=== PATIENT | male | born 1940 | race Caucasian/White ===

== ENCOUNTER 2017-07-10 16:57 | Inpatient (IN) | payer OTHER ==
[~2017-07-10] VITALS: Ht 172.7 cm; Wt 87.8 kg
[~2017-07-10 16:57] MED LIST: ASPIRIN81 M1 PO; BACTRIM DS 8001 TA1 PO; BP; CHOLESTEROL PILL; CO Q-1010 MG PO; FISH OIL 10001000 MG PO; FLOMAX0.4 MG PO; HYDR25T PO; LISINOPRIL; LISINOPRIL5 MG PO; MULTIPLE VITAMI1 CAP PO; NAPROXEN250 MG PO; PERCOCET 325 MG1 TA5 PO; VITAMIN B COMPL1 TAB PO; VITAMINS
[2017-07-10 17:06] VITALS: BP 127/76
[2017-07-10 17:40] LABS: HEMATOCRIT 39.9 % (42.0-52.0); HEMOGLOBIN 13.6 g/dl (14.0-18.0); MEAN CELL VOLUME 101.3 fl (80.0-94.0); MEAN CORPUSCULAR HGB 34.5 pg (27.0-31.0); MEAN CORPUSCULAR HGB CONC 34.1 g/dl (33.0-37.0); PLATELET COUNT AUTOMATED 220 10*3/uL (130-400); RED BLOOD COUNT 3.94 10*6/uL (4.50-5.90); RED CELL DISTRI WIDTH 12.4 % (0-14.5); WHITE BLOOD COUNT 12.7 10*3/uL (4.8-10.8)
[2017-07-10 17:55] LABS: ALBUMIN 3.4 gm/dl (3.1-4.5); ALKALINE PHOSPHATASE 71 U/L (45-117); BUN 14 mg/dl (7-24); CHLORIDE 99 mmol/L (98-107); CREATININE 1.34 mg/dL (0.70-1.30); POTASSIUM 3.8 mmol/L (3.5-5.1); SGOT/AST 9 IU/L (3-35); SGPT/ALT 13 U/L (12-78); SODIUM 136 mmol/L (136-145)
[2017-07-10 18:11] LABS: BASOPHILS 1 % (0-1); PLATELET SUFFICIENCY NORMAL (NORMAL); TOTAL CELLS COUNTED 100 #CELLS
[2017-07-10 19:08] VITALS: BP 117/65
[2017-07-10 19:32] LABS: BILIRUBIN NEGATIVE (NEGATIVE); BLOOD NEGATIVE (NEGATIVE); CLARITY CLEAR (CLEAR); COLOR YELLOW (YELLOW); GLUCOSE NEGATIVE (NEGATIVE); KETONE 1+ (NEGATIVE); LEUKO ESTERASE NEGATIVE (NEGATIVE); NITRITE NEGATIVE (NEGATIVE); PH 5.5 (5.0-9.0); SPECIFIC GRAVITY 1.025 (1.005-1.030); UROBILINOGEN 0.2 E.U./dl (0.2-1.0)
[2017-07-10 19:39] LABS: BACTERIA TRACE; FINE GRANULAR CAST 0-2; RBC 0-2 rbc/hpf (0-2); WBC 0-2 wbc/hpf (0-5)
[2017-07-10 21:00] VITALS: BP 101/84
--- NOTE | 2017-07-10 21:00 | NUR ---
Time: 2099 A 76 year old MALE admitted to 5E under services of ESPERANZA ORELLANA DO. Pt. arrived via wheel chair from ER. Chief complaint: INTRACTABLE BACK PAIN. SORAYA MAGANA
--- NOTE | 2017-07-10 22:50 | NUR ---
PATIENT REQUESTED AND RECEIVED PO NORCO PER PRN ORDER FOR C/O LOW BACK PAIN 03/14. PATIENT HAS OPEN AREA TO RIGHT LOWER BACK/SIDE. PATIENT SAYS HE HAD PAIN PATCHES AND USED A TENS UNIT TO BACK THAT CAUSED THE OPENING. PHOTOGRAPHS TAKEN AT THIS TIME. WILL MONITOR PATIENT. BLANKETS, TOOTHBRUSH/TOOTHPASTE, AND GOWN PROVIDED FOR COMFORT.
--- NOTE | 2017-07-10 23:57 | NUR ---
EARLIER MEDICATION EFFECTIVE PER PATIENT. WILL CONTINUE TO MONITOR. CALL LIGHT LEFT WITHIN REACH.
[2017-07-11] VITALS: BP 108/45
[2017-07-11] MEDS ORDERED: DONEPEZIL HCL10 MG PO (00:05)
[2017-07-11] MEDS ORDERED: DICLOFENAC SOD100 G1 T (00:07)
[2017-07-11] MEDS ORDERED: THIAMINE HCL100 MG PO (00:08)
[2017-07-11] MEDS ORDERED: CITALOPRAM10 MG PO (00:09)
[2017-07-11] MEDS ORDERED: ASPIRIN81 MG PO (00:10)
[2017-07-11] MEDS ORDERED: TRAZADONE HYDR100 MG PO (00:13)
[2017-07-11] MEDS ORDERED: NATURE'S BLEND F1 MG PO (00:14)
[2017-07-11 03:11] LABS: HEMATOCRIT 38.7 % (42.0-52.0); HEMOGLOBIN 12.8 g/dl (14.0-18.0); MEAN CELL VOLUME 100.8 fl (80.0-94.0); MEAN CORPUSCULAR HGB 33.3 pg (27.0-31.0); MEAN CORPUSCULAR HGB CONC 33.1 g/dl (33.0-37.0); MEAN PLATELET VOLUME 11.2 fl (9.6-12.3); PLATELET COUNT AUTOMATED 204 10*3/uL (130-400); RED BLOOD COUNT 3.84 10*6/uL (4.50-5.90); RED CELL DISTRI WIDTH 12.4 % (0-14.5); WHITE BLOOD COUNT 7.9 10*3/uL (4.8-10.8)
[2017-07-11 03:26] LABS: ACT PARTIAL THROMBO TIME 23.5 SECONDS (20.8-31.5)
[2017-07-11 03:27] LABS: ALBUMIN 2.9 gm/dl (3.1-4.5); CREATININE 1.5 mg/dL (0.70-1.30); MAGNESIUM 2.2 mg/dL (1.5-2.1); PHOSPHOROUS 2.9 mg/dL (2.5-4.9); POTASSIUM 3.9 mmol/L (3.5-5.1); TOTAL PROTEIN 7.1 gm/dL (6.4-8.2)
[2017-07-11 03:33] LABS: PLATELET SUFFICIENCY NORMAL (NORMAL); THYROID STIM HORMONE (HS) 0.859 uIU/ml (0.358-4.75); TOTAL CELLS COUNTED 100 #CELLS
[2017-07-11 03:34] LABS: BURR CELLS FEW
--- NOTE | 2017-07-11 04:21 | NUR ---
PATIENT ASLEEP IN BED AT THIS TIME. RESPIRATIONS EASY, NO S/S OF DISTRESS NOTED.
--- NOTE | 2017-07-11 05:27 | NUR ---
ATTEMPTED TO COMPLETE MRI QUESTIONNAIRE WITH PATIENT. PATIENT IS POOR HISTORIAN AND STATES HIS KNOWS "ALL OF THAT STUFF." UNABLE TO COMPLETE QUESTIONNAIRE AT THIS TIME. WILL ATTEMPT TO CALL AT LATER TIME.
--- NOTE | 2017-07-11 07:04 | NUR ---
ATTEMPTED TO CALL AT THIS TIME TO FILL OUT MRI QUESTIONAIRE. NO ANSWER. WILL TRY AGAIN.
[2017-07-11 08:00] VITALS: BP 124/68
--- NOTE | 2017-07-11 08:00 | NUR ---
Machine Operator Replanter in to talk to patient. Patient states lives at [address] with HIS . There are 1 steps in the home. Physician: [place] Pharmacy: [facility] Home health services: NONE Patient's level of ADLs: INDEPENDENT Patient has working utilities: YES DME: NONE Follow-up physician's appointment after d/c: WILL BE MADE PRIOR Does patient want to access PORTAL?: Discharge plan HOME. TARIK MCCAULEY
--- NOTE | 2017-07-11 08:59 | NUR ---
VOICE MAIL LEFT AT [facility] THAT PT WAS SENT HERE BY [facility] AND PT WANTS TO MAKE SURE [facility] IS PAYING FOR THIS VISIT. IS WILLING TO GO TO [facility] IF BED AVAILABLE.
--- NOTE | 2017-07-11 09:35 | NUR ---
BRIGIDADUNG ZHANG [id number] Please refer to the physician's history and physical for past medical history, comorbid conditions, and allergies. Diagnosis: INTRACTABLE BACK PAIN Philippe Score: 19,LOW OR NO RISK WOUND DESCRIPTIONS: Location of the wound: right lower back Type of wound: medical staff manager pressure ulcer stage 2 Thickness: Partial Size: 0.4cm x 0.6cm x 0.1cm Tunneling: none Undermining: none Sinus Tract: none Presence of Exudate: Amount: None Color: Red Odor: None Periwound Skin Appearance: Normal Wound edges: approximated Pain (associated with wound): none at time of assessment How does patient state this happened? pt stated that it was caused when he removed his tens unit. His daughter stated that he had a horrible reaction due to the adhesive in the pads and he was ordered new pads and since then haven't had any problems. Surface the patient is resting on: Position Pro SKIN PREVENTION RECOMMENDATION: 1. Pressure redistribution support surface as appropriate 2. Elevate heels 3. Remove boots/TEDS every shift and reapply 4. Head of bed 30 degrees as tolerated 5. Assess nutrition and hydration 6. Manage moisture 7. Avoid the use of containment devices while in bed 8. Use absorptive products on surfaces limit layers of linens on bed 9. Turn and reposition every 1-2 hours in bed and every 1 hour in chair as tolerated 10. Weight shifts every 15 minutes while up in chair 11. Offloading with pillows or device to keep heels elevated off bed 12. Monitor skin at least every shift 13. Inspect under medical devices twice a day WOUND TREATMENT RECOMMENDATIONS: stage 2 guidelines nss, sureprep, hydrogel, optifoam gentle.
[2017-07-11 12:00] VITALS: BP 130/66
--- NOTE | 2017-07-11 12:42 | NUR ---
PHYSICAL THERAPY PAtient has severe back pain and difficulties. PAtient is 100 % (I) all functional mobility. Recommend ortho specialist referral and out patient PT. Thank you for this referral. Kennedi Son, PT
[2017-07-11 16:00] VITALS: BP 130/60
[2017-07-11 20:00] VITALS: BP 148/79
--- NOTE | 2017-07-11 22:29 | NUR ---
PATIENT MEDICATED WITH DILAUDID AT 2146 FOR BACK PAIN WITH EFFECTIVE RESULTS NOTED. RESTING IN BED WITH EYES CLOSED. NO SIGNS OR SYMPTOMS OF DISTRESS NOTED. WILL CONTINUE TO MONITOR. CALL LIGHT IN REACH.
[2017-07-12] VITALS: BP 128/66
--- NOTE | 2017-07-12 06:45 | NUR ---
RUELCO GIVEN PER ORDER FOR BACK PAIN RATED "5". SEE MAR.
[2017-07-12 07:12] LABS: BASO % 0.2 % (0.0-1.0); HEMATOCRIT 39.1 % (42.0-52.0); LYMPH # 0.7 10*3/uL (1.3-4.4); LYMPH % 6.1 % (27.0-41.0); MEAN CELL VOLUME 102.1 fl (80.0-94.0); MEAN CORPUSCULAR HGB 33.9 pg (27.0-31.0); MEAN CORPUSCULAR HGB CONC 33.2 g/dl (33.0-37.0); MEAN PLATELET VOLUME 11.3 fl (9.6-12.3); MONO # 0.4 10*3/uL (0.1-1.0); MONO % 3.4 % (3.0-9.0); NEUT # 10.6 10*3/uL (2.3-7.9); NEUT % 89.9 % (47.0-73.0); PLATELET COUNT AUTOMATED 238 10*3/uL (130-400); RED BLOOD COUNT 3.83 10*6/uL (4.50-5.90); RED CELL DISTRI WIDTH 12.6 % (0-14.5); WHITE BLOOD COUNT 11.8 10*3/uL (4.8-10.8)
--- NOTE | 2017-07-12 07:30 | NUR ---
ASSUMED CARE OF PT AT THIS TIME, PT SITTING UP IN BED, PRESENT, RESPS EASY AND NONLABORED WITH NO S/S OF DISTRESS
[2017-07-12 07:46] LABS: ALBUMIN 3.1 gm/dl (3.1-4.5); BUN 24 mg/dl (7-24); CHLORIDE 103 mmol/L (98-107); POTASSIUM 4.4 mmol/L (3.5-5.1); SGOT/AST 13 IU/L (3-35); SGPT/ALT 14 U/L (12-78); SODIUM 137 mmol/L (136-145); TOTAL PROTEIN 7.6 gm/dL (6.4-8.2)
[2017-07-12 07:47] LABS: ALKALINE PHOSPHATASE 65 U/L (45-117); CREATININE 1.19 mg/dL (0.70-1.30)
[2017-07-12 08:00] VITALS: BP 142/73
--- NOTE | 2017-07-12 08:00 | NUR ---
SPECIALTY SALES REPRESENTATIVE VS. STAFF AT BEDSIDE. NO DC NEEDS AT THIS TIME.
--- NOTE | 2017-07-12 10:00 | NUR ---
PT REFUSED LOVENOX INJECTION AT THIS TIME, EDUCATION PROVIDED BUT INEFFECTIVE AT THIS TIME
[2017-07-12 12:01] VITALS: BP 157/76
[2017-07-12] MEDS ORDERED: ULTRACET 325 MG1 TA1 PO (12:54)
[2017-07-12] MEDS ORDERED: PREDNISONE10 MG PO (12:54)
--- NOTE | 2017-07-12 16:25 | NUR ---
Discharge instructions reviewed with patient/family. Patient receptive and verbalizes understanding. Follow-up care arranged. Written instructions given to patient/family. NELY ROSA
== END 2017-07-12 16:25 | disposition home or self-care (01) | DRG 552 ==
LOC: ED 16:57 → EDHOLD 20:09 → 5E 20:09
PROVIDERS: Hospitalist; Internal Medicine; ADMIT Emergency Medicine
DX: M99.53 Intervertebral disc stenosis of neural canal of lumbar region (principal); E44.0 Moderate protein-calorie malnutrition; R65.10 Systemic inflammatory response syndrome (SIRS) of non-infectious origin without acute organ dysfunction; E83.41 Hypermagnesemia; N40.0 Benign prostatic hyperplasia without lower urinary tract symptoms; I10 Essential (primary) hypertension; E78.5 Hyperlipidemia, unspecified; G89.29 Other chronic pain; K57.30 Diverticulosis of large intestine without perforation or abscess without bleeding; I25.10 Atherosclerotic heart disease of native coronary artery without angina pectoris; K44.9 Diaphragmatic hernia without obstruction or gangrene; K80.20 Calculus of gallbladder without cholecystitis without obstruction; K42.9 Umbilical hernia without obstruction or gangrene; N43.3 Hydrocele, unspecified; Z88.6 Allergy status to analgesic agent; Z79.82 Long term (current) use of aspirin; Z79.899 Other long term (current) drug therapy; Z87.442 Personal history of urinary calculi; Z82.49 Family history of ischemic heart disease and other diseases of the circulatory system; T81.89XS Other complications of procedures, not elsewhere classified, sequela; Z68.29 Body mass index [BMI] 29.0-29.9, adult

== ENCOUNTER 2021-01-11 11:11 | Observation (INO) | payer OTHER ==
[~2021-01-11] VITALS: Ht 172.7 cm; Wt 89.9 kg
[~2021-01-11 11:11] MED LIST changes: +ASPIRIN81 MG PO; +CITALOPRAM10 MG PO; +DICLOFENAC SOD100 G1 T; +DONEPEZIL HCL10 MG PO; +NATURE'S BLEND F1 MG PO; +PREDNISONE10 MG PO; +THIAMINE HCL100 MG PO; +TRAZADONE HYDR100 MG PO; +ULTRACET 325 MG1 TA1 PO
[2021-01-11 11:17] VITALS: BP 131/74
[2021-01-11 11:58] LABS: HEMATOCRIT 41.6 % (42.0-52.0); MEAN CELL VOLUME 100.7 fl (80.0-94.0); MEAN CORPUSCULAR HGB 32.9 pg (27.0-31.0); MEAN CORPUSCULAR HGB CONC 32.7 g/dl (33.0-37.0); MEAN PLATELET VOLUME 11.5 fl (9.6-12.3); PLATELET COUNT AUTOMATED 175 10*3/uL (130-400); RED BLOOD COUNT 4.13 10*6/uL (4.50-5.90); RED CELL DISTRI WIDTH 12.5 % (0-14.5); WHITE BLOOD COUNT 5.4 10*3/uL (4.8-10.8)
[2021-01-11 12:09] LABS: ACT PARTIAL THROMBO TIME 25.8 SECONDS (20.0-32.1)
[2021-01-11 12:09] LABS: BILIRUBIN Negative (Negative); BLOOD Negative (Negative); CLARITY Clear (Clear); COLOR Dark Yellow (Yellow); GLUCOSE Negative (Negative); KETONE Trace (Negative); LEUKO ESTERASE Trace (Negative); NITRITE Negative (Negative); SPECIFIC GRAVITY >= 1.030 (1.001-1.030)
[2021-01-11 12:14] LABS: ALBUMIN 3.5 gm/dl (3.1-4.5); ALKALINE PHOSPHATASE 64 U/L (45-117); BUN 11 mg/dl (7-24); CHLORIDE 109 mmol/L (98-107); CREATININE 1.41 mg/dL (0.70-1.30); LIPASE 274 U/L (73-393); POTASSIUM 3.7 mmol/L (3.5-5.1); SGOT/AST 18 IU/L (3-35); SGPT/ALT 26 U/L (12-78); SODIUM 143 mmol/L (136-145); TOTAL PROTEIN 7.3 gm/dL (6.4-8.2); TROPONIN I < 0.015 ng/ml (<0.045)
[2021-01-11 12:15] LABS: BASOPHILS 1 % (0-1); TOTAL CELLS COUNTED 100 #CELLS
[2021-01-11 12:16] LABS: ACANTHOCYTES FEW; PLATELET SUFFICIENCY NORMAL (NORMAL); SCHISTOCYTES FEW
[2021-01-11 12:22] VITALS: BP 122/61
[2021-01-11 12:47] LABS: BACTERIA TRACE; MUCOUS 2+
[2021-01-11 16:45] VITALS: BP 126/60
[2021-01-11 20:00] VITALS: BP 120/99
[2021-01-11 20:55] VITALS: BP 133/61
[2021-01-11 21:00] VITALS: BP 120/99
[2021-01-11] MEDS ORDERED: VITAMIN B-12100 MCG PO (21:51)
[2021-01-11] MEDS ORDERED: TRAZODONE50 MG PO (21:51)
[2021-01-11] MEDS ORDERED: PROPRANOLOL HCL10 MG PO (21:52)
[2021-01-11] MEDS ORDERED: NAMENDA10 MG PO (21:53)
[2021-01-12] VITALS: BP 151/75
[2021-01-12 06:15] LABS: ALBUMIN 2.8 gm/dl (3.1-4.5); ALKALINE PHOSPHATASE 55 U/L (45-117); BUN 10 mg/dl (7-24); CHLORIDE 111 mmol/L (98-107); CHOLESTEROL 142 mg/dL (<200); CREATININE 1.15 mg/dL (0.70-1.30); HDL CHOLESTEROL 31 mg/dl (40-60); LDL CHOLESTEROL 83 mg/dL (9-159); POTASSIUM 3.5 mmol/L (3.5-5.1); SGOT/AST 12 IU/L (3-35); SGPT/ALT 20 U/L (12-78); SODIUM 144 mmol/L (136-145); TOTAL PROTEIN 6.2 gm/dL (6.4-8.2); TRIGLYCERIDES 140 mg/dl (<150); VLDL CHOLESTEROL 28 mg/dL (6-40)
[2021-01-12 06:19] LABS: BASO # 0.1 10*3/uL (0.0-0.1); BASO % 1.2 % (0.0-1.0); EOS # 0.2 10*3/uL (0.0-0.4); EOS % 3.8 % (1.0-4.0); HEMATOCRIT 38.2 % (42.0-52.0); LYMPH % 50.5 % (27.0-41.0); MEAN CELL VOLUME 103.2 fl (80.0-94.0); MEAN CORPUSCULAR HGB 32.7 pg (27.0-31.0); MEAN CORPUSCULAR HGB CONC 31.7 g/dl (33.0-37.0); MONO # 0.8 10*3/uL (0.1-1.0); MONO % 13.1 % (3.0-9.0); NEUT # 1.9 10*3/uL (2.3-7.9); NEUT % 31.2 % (47.0-73.0); PLATELET COUNT AUTOMATED 173 10*3/uL (130-400); RED CELL DISTRI WIDTH 12.5 % (0-14.5)
[2021-01-12 06:21] LABS: FREE T4 0.99 ng/dl (0.76-1.46)
[2021-01-12 07:20] LABS: VITAMIN D, 25-HYDROXY 42.9 ng/mL (30-100)
[2021-01-12 08:00] VITALS: BP 132/60
[2021-01-12 12:00] VITALS: BP 130/62
[2021-01-12 16:00] VITALS: BP 158/72
[2021-01-12 20:00] VITALS: BP 120/62
[2021-01-13] VITALS: BP 132/80
[2021-01-13 08:00] VITALS: BP 100/79
[2021-01-13 12:00] VITALS: BP 117/61
== END 2021-01-13 13:05 | disposition home or self-care (01) ==
LOC: ED 11:11 → EDHOLD 15:15 → 4E 18:57
PROVIDERS: Emergency Medicine; Internal Medicine; ADMIT Internal Medicine; ATTEND Internal Medicine
DX: R41.82 Altered mental status, unspecified (principal); N39.0 Urinary tract infection, site not specified; N17.0 Acute kidney failure with tubular necrosis; G93.41 Metabolic encephalopathy; R44.3 Hallucinations, unspecified; E87.8 Other disorders of electrolyte and fluid balance, not elsewhere classified; R73.9 Hyperglycemia, unspecified; R70.0 Elevated erythrocyte sedimentation rate; I10 Essential (primary) hypertension; N40.0 Benign prostatic hyperplasia without lower urinary tract symptoms; E78.5 Hyperlipidemia, unspecified; M54.5 Low back pain; G89.29 Other chronic pain; K57.90 Diverticulosis of intestine, part unspecified, without perforation or abscess without bleeding; D53.9 Nutritional anemia, unspecified; E44.0 Moderate protein-calorie malnutrition; F32.9 Major depressive disorder, single episode, unspecified; F41.9 Anxiety disorder, unspecified; Z98.890 Other specified postprocedural states

== ENCOUNTER 2022-09-26 18:00 | Emergency (ER) | payer OTHER ==
[~2022-09-26] VITALS: Ht 170.1 cm; Wt 85.3 kg
[~2022-09-26 18:00] MED LIST changes: +NAMENDA10 MG PO; +PROPRANOLOL HCL10 MG PO; +TRAZODONE50 MG PO; +VITAMIN B-12100 MCG PO
== END 2022-09-26 21:44 | disposition home or self-care (01) ==
LOC: ED 18:00
DX: S49.91XA Unspecified injury of right shoulder and upper arm, initial encounter (principal); Z88.8 Allergy status to other drugs, medicaments and biological substances; Z79.899 Other long term (current) drug therapy; Z79.82 Long term (current) use of aspirin; Z98.890 Other specified postprocedural states; W06.XXXA Fall from bed, initial encounter; Y93.89 Activity, other specified; Y92.89 Other specified places as the place of occurrence of the external cause; Y99.8 Other external cause status

== ENCOUNTER 2024-12-01 17:14 | Emergency (ER) | payer OTHER ==
[~2024-12-01] VITALS: Ht 172.7 cm; Wt 89.1 kg
[2024-12-01 18:34] LABS: HEMATOCRIT 38.7 % (42.0-52.0); MEAN CELL VOLUME 99.7 fl (80.0-94.0); MEAN CORPUSCULAR HGB CONC 33.1 g/dl (33.0-37.0); MEAN PLATELET VOLUME 11.7 fl (9.6-12.3); PLATELET COUNT AUTOMATED 165 10*3/uL (130-400); RED BLOOD COUNT 3.88 10*6/uL (4.50-5.90); RED CELL DISTRI WIDTH 13.1 % (0-14.5); WHITE BLOOD COUNT 7.6 10*3/uL (4.8-10.8)
[2024-12-01 18:39] LABS: MANUAL DIFF REFLEX YES
[2024-12-01 18:53] LABS: ALKALINE PHOSPHATASE 69 U/L (46-116); BUN 10 mg/dl (9-23); CHLORIDE 108 mmol/L (98-107); CPK 102 U/L (34-171); POTASSIUM 3.7 mmol/L (3.4-5.1); SGPT/ALT 12 U/L (5-49); TOTAL PROTEIN 6.2 gm/dL (6.0-8.0)
[2024-12-01 18:57] LABS: ACANTHOCYTES MODERATE; ATYPICAL LYMPHS 1 % (0-0); PLATELET SUFFICIENCY NORMAL (NORMAL); SPHEROCYTES FEW; TOTAL CELLS COUNTED 100 #CELLS
[2024-12-01 19:41] LABS: BILIRUBIN Negative (Negative); BLOOD Negative (Negative); CLARITY Clear (Clear); COLOR Yellow (Yellow); GLUCOSE Negative (Negative); KETONE Trace (Negative); LEUKO ESTERASE 1+ (Negative); NITRITE Negative (Negative); PH 5.5 (4.5-8.0); SPECIFIC GRAVITY 1.015 (1.001-1.030)
[2024-12-01 19:49] LABS: BACTERIA TRACE; MUCOUS 2+
== END 2024-12-01 21:16 | disposition home or self-care (01) ==
LOC: ED 17:14
PROVIDERS: Nurse Practitioner Family
DX: G30.9 Alzheimer's disease, unspecified (principal); F02.80 Dementia in other diseases classified elsewhere, unspecified severity, without behavioral disturbance, psychotic disturbance, mood disturbance, and anxiety; R44.1 Visual hallucinations; R05.9 Cough, unspecified; G89.29 Other chronic pain; E78.5 Hyperlipidemia, unspecified; I10 Essential (primary) hypertension; E44.0 Moderate protein-calorie malnutrition; Z88.5 Allergy status to narcotic agent; Z79.82 Long term (current) use of aspirin; Z79.899 Other long term (current) drug therapy; Z87.442 Personal history of urinary calculi; Z98.890 Other specified postprocedural states; Z20.822 Contact with and (suspected) exposure to COVID-19